=== PATIENT | female | born 1955 | race Caucasian/White ===

== ENCOUNTER 2018-01-01 13:46 | Emergency (ER) | payer SELFPAY ==
[~2018-01-01] VITALS: Ht 157.5 cm; Wt 57.6 kg
[2018-01-01] MEDS ORDERED: BLOOD PRESSURE MED ×2 (13:55)
[2018-01-01] MEDS ORDERED: AUGMENTIN 875-1 EACH PO (13:55)
[2018-01-01] MEDS ORDERED: BISOPROLOL-HCT1 EACH PO (18:17)
[2018-01-01] MEDS ORDERED: NORCO 5-325 TA1 EACH PO (20:57)
[2018-01-01] MEDS ORDERED: CEPHALEXIN500 MG PO (20:57)
== END 2018-01-01 14:00 | disposition home or self-care (01) ==
LOC: ED 13:46
DX: R52 Pain, unspecified (principal); R11.0 Nausea; R68.83 Chills (without fever)

== ENCOUNTER 2018-01-01 15:15 | Emergency (ER) | payer OTHER ==
[~2018-01-01] VITALS: Ht 157.5 cm; Wt 57.6 kg
[~2018-01-01 15:15] MED LIST: AUGMENTIN 875-1 EACH PO; BLOOD PRESSURE MED
[2018-01-01] MEDS ORDERED: BISOPROLOL-HCT1 EACH PO (18:17)
[2018-01-01] MEDS ORDERED: CEPHALEXIN500 MG PO (20:57)
[2018-01-01] MEDS ORDERED: NORCO 5-325 TA1 EACH PO (20:57)
== END 2018-01-01 21:28 | disposition home or self-care (01) ==
LOC: ED 15:15
DX: N39.0 Urinary tract infection, site not specified (principal); I10 Essential (primary) hypertension; Z87.891 Personal history of nicotine dependence; Z79.899 Other long term (current) drug therapy
CPT/HCPCS: 74176; 80053; 81001; 85025; 87088; 87502; 96374; 96375; 99284; J0696; J1885; J2405